=== PATIENT | male | born 1970 | race Caucasian/White ===

== ENCOUNTER 2022-01-30 08:45 | Outpatient (CLI) | payer OTHER, SELFPAY ==
--- NOTE | 2022-01-30 11:24 | W.ANESCHARGE ---
Anesthesia Charges Start Date/Time Anesthesia Start Date: 01/30/22 Anesthesia Start Time: 10:17 Stop Date/Time Anesthesia Stop Date: 01/30/22 Anesthesia Stop Time: 11:05 Summary Emergency: No
--- NOTE | 2022-01-30 11:33 | W.ANESCHARGE ---
Anesthesia Charges Start Date/Time Anesthesia Start Date: 01/30/22 Anesthesia Start Time: 10:17 Stop Date/Time Anesthesia Stop Date: 01/30/22 Anesthesia Stop Time: 11:05 Summary Emergency: No
== END 2022-01-30 08:46 | disposition home or self-care (01) ==
PROVIDERS: PCP Physician Assistant Medical; Visit Provider Surgery
DX: Z12.11 Encounter for screening for malignant neoplasm of colon (principal); K63.5 Polyp of colon; K57.30 Diverticulosis of large intestine without perforation or abscess without bleeding; Z80.0 Family history of malignant neoplasm of digestive organs; K31.7 Polyp of stomach and duodenum; R19.8 Other specified symptoms and signs involving the digestive system and abdomen
CPT/HCPCS: 00813; 43239; 45385; 88305; J3490

== ENCOUNTER 2022-12-22 10:03 | Outpatient (CLI) | payer OTHER, SELFPAY | END 2022-12-22 10:04 | disposition home or self-care (01) | PROVIDERS: PCP Physician Assistant Medical; Visit Provider Family Medicine | DX: R53.83 Other fatigue (principal); E03.9 Hypothyroidism, unspecified; E78.5 Hyperlipidemia, unspecified; R79.89 Other specified abnormal findings of blood chemistry; Z86.39 Personal history of other endocrine, nutritional and metabolic disease | CPT/HCPCS: 80053; 80061; 84146; 84153; 84270; 84402; 84403; 84443 ==

== ENCOUNTER 2024-01-27 09:43 | Outpatient (CLI) | payer OTHER, SELFPAY | END 2024-01-27 09:44 | disposition home or self-care (01) | PROVIDERS: PCP Physician Assistant Medical; Visit Provider Emergency Medicine | DX: R20.2 Paresthesia of skin (principal); E03.9 Hypothyroidism, unspecified | CPT/HCPCS: 82607; 84443 ==

== ENCOUNTER 2024-10-03 08:52 | Outpatient (CLI) | payer OTHER, SELFPAY | END 2024-10-03 08:53 | disposition home or self-care (01) | LOC: NFLDREF 10-11 16:07 | PROVIDERS: PCP Physician Assistant Medical; Referring Provider Physician Assistant Medical; Visit Provider Physician Assistant Medical | DX: Z00.00 Encounter for general adult medical examination without abnormal findings (principal); R79.89 Other specified abnormal findings of blood chemistry; R53.83 Other fatigue; E03.9 Hypothyroidism, unspecified; E78.5 Hyperlipidemia, unspecified; Z12.5 Encounter for screening for malignant neoplasm of prostate | CPT/HCPCS: 80053; 80061; 84403; 84443; G0103 ==

== ENCOUNTER 2024-10-12 13:48 | Outpatient (CLI) | payer OTHER, SELFPAY | END 2024-10-12 13:49 | disposition home or self-care (01) | PROVIDERS: PCP Physician Assistant Medical; Visit Provider Physician Assistant Medical | DX: Z00.01 Encounter for general adult medical examination with abnormal findings (principal); R10.11 Right upper quadrant pain; Z11.9 Encounter for screening for infectious and parasitic diseases, unspecified; R53.83 Other fatigue; M25.572 Pain in left ankle and joints of left foot; M25.571 Pain in right ankle and joints of right foot; M25.562 Pain in left knee; M25.561 Pain in right knee; R86.1 Abnormal level of hormones in specimens from male genital organs; R00.1 Bradycardia, unspecified; G47.00 Insomnia, unspecified; Z86.39 Personal history of other endocrine, nutritional and metabolic disease; E78.5 Hyperlipidemia, unspecified; E03.9 Hypothyroidism, unspecified; K21.9 Gastro-esophageal reflux disease without esophagitis; H93.11 Tinnitus, right ear | CPT/HCPCS: 82652; 84146; 84550; 86038; 86140; 86200; 86431; 86618; 86812; 99001 ==

== ENCOUNTER 2024-10-24 09:07 | Outpatient (CLI) | payer OTHER, SELFPAY ==
--- NOTE | 2024-10-24 09:15 | CRLHL7_ITS ---
For Patients: As a result of the Century Cures Act, medical imaging exams and procedure reports are released immediately into your electronic medical record. You may view this report before your referring provider. If you have questions, please contact your health care provider. INDICATION: Right upper quadrant pain COMPARISON: none TECHNIQUE: Real time donahue scale imaging and color Doppler analysis was performed of the right upper quadrant. FINDINGS: The liver measures 19.5 cm. The liver has diffusely increased echotexture. Patchy areas of focal fatty sparing noted adjacent to the gallbladder. There is a normal appearance of the hepatic IVC and proximal abdominal aorta. There is no evidence of ascites. The gallbladder is of normal size and there is no evidence of intraluminal stones or sludge. The gallbladder wall measures 2 mm in thickness. The common bile duct is of normal size and measures 3 mm in diameter at the level of the bereket hepatis. The visualized pancreas appears normal. There is no evidence of a stone or hydronephrosis within the right kidney. The right kidney measures 10.8 cm in length. IMPRESSION: Hepatomegaly with diffuse hepatic steatosis. Remainder unremarkable. Dictated by Jimbo Matute MD @ 10/24/2024 8:48:35 PM (Electronically Signed)
== END 2024-10-24 09:08 | disposition home or self-care (01) ==
LOC: US 09:08
PROVIDERS: PCP Physician Assistant Medical; Visit Provider Physician Assistant Medical
DX: R10.11 Right upper quadrant pain (principal); R16.0 Hepatomegaly, not elsewhere classified; K76.0 Fatty (change of) liver, not elsewhere classified
CPT/HCPCS: 76705

== ENCOUNTER 2024-11-08 08:41 | Outpatient (CLI) | payer OTHER, SELFPAY ==
--- NOTE | 2024-11-08 09:00 | CRLHL7_ITS ---
For Patients: As a result of the Century Cures Act, medical imaging exams and procedure reports are released immediately into your electronic medical record. You may view this report before your referring provider. If you have questions, please contact your health care provider. INDICATION: Right-sided abdominal pain TECHNIQUE: CT abdomen and pelvis acquired with 110 mL Isovue 370 IV contrast. COMPARISON: 10/24/2024 ultrasound FINDINGS: Lower chest: Unremarkable. Liver: Steatosis. Gallbladder and bile ducts: Unremarkable. No stones or inflammation. No biliary dilatation. Pancreas: Unremarkable. No mass or inflammation. Spleen: Unremarkable. Normal in size. No masses. Adrenal glands: Unremarkable. No nodules. Kidneys: Unremarkable. No masses, stones, or hydronephrosis. GI tract: Sigmoid diverticulosis. No evidence for acute diverticulitis. Normal appendix. Vasculature: Unremarkable. Mesenteric arteries are patent. Lymph nodes: No lymphadenopathy. Omentum/Peritoneum/Abdominal Wall: Unremarkable. No sign of mass or infiltration. No free air or significant free fluid. Pelvis: Unremarkable. Bones: Unremarkable for age. IMPRESSION: 1. No acute findings. No cause for right-sided abdominal pain identified. 2. Hepatic steatosis. 3. Sigmoid diverticulosis. Please note that all CT scans at this facility use dose modulation, iterative reconstruction, and/or weight-based dosing when appropriate to reduce radiation dose to as low as reasonably achievable. Dictated by Bashir Marshall MD @ 11/09/2024 9:16:49 AM (Electronically Signed)
== END 2024-11-08 08:42 | disposition home or self-care (01) ==
LOC: CT 08:42
PROVIDERS: PCP Physician Assistant Medical; Visit Provider Physician Assistant Medical
DX: R10.9 Unspecified abdominal pain (principal); K76.0 Fatty (change of) liver, not elsewhere classified; K57.30 Diverticulosis of large intestine without perforation or abscess without bleeding
CPT/HCPCS: 74177; Q9967